=== PATIENT | male | born 1980 | race African-American/Black ===

== ENCOUNTER 2016-12-26 14:23 | Emergency (ER) | payer OTHER ==
--- NOTE | 2016-12-26 15:15 | UC ---
Abdominal Pain Male HPI - HPI Summary HPI Summary: PT MOVED HERE FROM [facility] 2 MONTHS AGO. IN THE PAST SEVERAL WEEKS HAS NOTICED AN INCREASE IN FLATULENCE. DENIES ANY FEVER, WEIGHT LOSS, BLOOD IN STOOL, ABDOMINAL PAIN, N/V OR CHANGE IN BOWEL CONSISTENCY. - History of Current Complaint Chief Complaint: UCForeignBody Stated Complaint: FLATULENCE Time Seen by Provider: 12/26/16 14:45 Hx Obtained From: Patient Onset/Duration: Gradual Onset, Lasting Weeks, Still Present Severity Initially: Mild Severity Currently: Mild Pain Intensity: 0 Pain Scale Used: 0-10 Numeric Aggravating Factor(s): Nothing Alleviating Factor(s): Nothing Associated Signs And Symptoms: Positive: Negative - Allergies/Home Medications Allergies/Adverse Reactions: Allergies Allergy/AdvReac Type Severity Reaction Status Date / Time No Known Allergies Allergy Verified 12/26/16 14:32 PMH/Surg Hx/FS Hx/Imm Hx Previously Healthy: Yes - Surgical History Surgical History: None - Family History Known Family History: Positive: Hypertension - Social History Alcohol Use: Occasionally Substance Use Type: None Smoking Status (MU): Never Smoked Tobacco Review of Systems Constitutional: Negative Respiratory: Negative Cardiovascular: Negative Gastrointestinal: Other - INCREASED FLATULENCE Genitourinary: Negative All Other Systems Reviewed And Are Negative: Yes Physical Exam Triage Information Reviewed: Yes Appearance: Well-Appearing, No Pain Distress, Well-Nourished Vital Signs: Initial Vital Signs Temp 97.6 F 12/26/16 14:29 Pulse 66 12/26/16 14:29 Resp 18 12/26/16 14:29 BP 120/76 12/26/16 14:29 Pulse Ox 99 12/26/16 14:29 Vital Signs Reviewed: Yes Eyes: Positive: Conjunctiva Clear ENT: Positive: Hearing grossly normal, Pharynx normal, Other: - RIGHT TM NORMAL. LEFT EAC OBSTRUCTED BY CERUMEN Neck: Positive: Supple, Nontender, No Lymphadenopathy Respiratory Exam: Normal Cardiovascular Exam: Normal Abdomen Description: Positive: Soft Bowel Sounds: Positive: Present - NORMAL SOUNDING Musculoskeletal: Positive: No Edema Neurological: Positive: Alert Psychological: Positive: Age Appropriate Behavior Skin: Negative: rashes Abd Pain Male Course/Dx - Course Course Of Treatment: CERUMEN SUCCESSFULLY IRRIGATED BY RN - Differential Dx/Clinical Impression Provider Diagnoses: 1. FLATULENCE. 2. CERUMEN IMPACTION LEFT EAR Discharge - Discharge Plan Condition: Stable Disposition: HOME Prescriptions: Simethicone [Eql Gas Relief Extra Stre] 125 mg PO QID PRN #30 cap PRN Reason: Pain Patient Education Materials: Cerumen Impaction (ED), Gas and Bloating (ED) Additional Instructions: CALL THE NUMBER BELOW FOR ASSISTANCE IN ESTABLISHING WITH A PCP An additional resource available to assist in finding the appropriate physician for your health care needs is the [facility] ([facility]). You may contact them by calling [phone]. TRY ELIMINATING CERTAIN FOODS FROM YOUR DIET TO SEE IF IT HELPS WITH YOUR SYMPTOMS. THE FOLLOWING TYPES OF FOODS ARE OFTEN ASSOCIATED WITH GAS PRODUCTION. - lactose, fructose, sorbitol, undigestible starches in fruits, vegetables, and legumes; and carbonated beverages. Products such as pork may release trace concentrations of malodorous gases upon digestion.
== END 2016-12-26 15:45 | disposition home or self-care (01) ==
LOC: UCEAST 14:23
DX: H61.22 Impacted cerumen, left ear (principal); R14.3 Flatulence
CPT/HCPCS: 99203; G0463

== ENCOUNTER 2017-02-02 09:50 | Emergency (ER) | payer OTHER ==
--- NOTE | 2017-02-02 12:49 | UC ---
Throat Pain/Nasal Julio HPI - HPI Summary HPI Summary: Pleasant 36 yo gentleman c/o progressively worse sore throat x approx 2 days. ? fever. No chills. No cough. No rash. No abd discomfort. Unk sick contact , works at [employer]. No recent travel. - History of Current Complaint Chief Complaint: UCGeneralIllness Stated Complaint: SORE THROAT Time Seen by Provider: 02/02/17 12:30 Hx Obtained From: Patient - Allergies/Home Medications Allergies/Adverse Reactions: Allergies Allergy/AdvReac Type Severity Reaction Status Date / Time No Known Allergies Allergy Verified 02/02/17 10:55 Home Medications: Home Medications Ibuprofen TAB* [Advil TAB*] 400 mg PO Q8HR PRN 02/02/17 [History Confirmed 02/02] PMH/Surg Hx/FS Hx/Imm Hx Previously Healthy: Yes - Surgical History Surgical History: None - Family History Known Family History: Positive: Hypertension - Social History Alcohol Use: Occasionally Substance Use Type: None Smoking Status (MU): Never Smoked Tobacco Review of Systems Constitutional: Fatigue Skin: Negative Eyes: Negative ENT: Sore Throat Respiratory: Negative Cardiovascular: Negative Gastrointestinal: Negative Genitourinary: Negative Motor: Negative Neurovascular: Negative Musculoskeletal: Negative Neurological: Negative Psychological: Negative Is Patient Immunocompromised?: No All Other Systems Reviewed And Are Negative: Yes Physical Exam Triage Information Reviewed: Yes Appearance: Well-Nourished Vital Signs: Initial Vital Signs Temp 97.7 F 02/02/17 10:49 Pulse 73 02/02/17 10:49 Resp 16 02/02/17 10:49 BP 127/82 02/02/17 10:49 Pulse Ox 98 02/02/17 10:49 Vital Signs Reviewed: Yes Eye Exam: Normal - grossly normal ENT: Positive: Pharyngeal erythema - airway patent. no sores. + redness. uvula midline., TM dull - au dull, Other - + stained teeth (chronic nut?) Neck exam: Normal Neck: Positive: Supple, Nontender, No Lymphadenopathy - none noted Respiratory Exam: Normal Respiratory: Positive: Chest non-tender, Lungs clear, Normal breath sounds, No respiratory distress Cardiovascular Exam: Normal Cardiovascular: Positive: RRR, Pulses Normal, Brisk Capillary Refill Abdominal Exam: Normal Abdomen Description: Positive: Nontender Musculoskeletal Exam: Normal Musculoskeletal: Positive: Strength Intact Neurological Exam: Normal - nonfocal Psychological Exam: Normal - conversing easily and appropriately Skin Exam: Normal - no visible or appreciated rash Throat Pain/Nasal Course/Dx - Course Course Of Treatment: 12:46 RST neg. Reviewed with pt. Consider mononucleosis ( unk hx), less likely - but will check. F/u PCP per routine. - Differential Dx/Diagnosis Provider Diagnoses: acute pharyngitis. Discharge - Discharge Plan Condition: Stable Disposition: HOME Prescriptions: Cefuroxime Axetil [Ceftin 500 MG TAB] 500 mg PO BID #20 tab Patient Education Materials: Pharyngitis (ED) Forms: *Work Release Referrals: [facility] [place] [facility] [Outside] No Primary Care Phys,NOPCP [Primary Care Provider] - Additional Instructions: Follow up with primary care physician as soon as you are able. Seek medical attention for worse or new problems in the meantime. Mononucleosis tests ordered today.
[2017-02-02 13:14] LABS: EBV Response YES
[2017-02-02 16:37] LABS: Mono Internal Control QC Line Present
[2017-02-03 15:22] LABS: EBV Capsid Ag IgG Ab Positive (Negative); EBV Capsid Ag IgM Ab Negative (Negative)
--- NOTE | 2017-02-03 19:07 | UC ---
Progress - Progress Note Progress Note: Evans negative for acute infection. Was placed on antibiotic for pharyngitis. No change - Results/Orders Results/Orders: Evans is negative for acute infection. Appears he was exposed to mono in the past.
== END 2017-02-02 13:10 | disposition home or self-care (01) ==
LOC: UCEAST 09:50
DX: J02.9 Acute pharyngitis, unspecified (principal)
CPT/HCPCS: 36415; 86308; 86664; 86665; 87651; 99212; G0463

== ENCOUNTER 2018-04-10 16:37 | Emergency (ER) | payer OTHER ==
[2018-04-10 16:49] VITALS: BP 122/87
--- NOTE | 2018-04-10 17:08 | UC ---
Respiratory Complaint HPI - HPI Summary HPI Summary: Patient is a 37 year old gentleman, who present today to the urgent care with sore throat for past 1 week. He reports that the tonsils are painful especially in morning and evening Denies any fevers or chills. He might have come in contact with someone sick No skin rash. Denies any cough, chest pain or shortness of breath . Denies any abdominal pain , nausea or vomiting , diarrhea or constipation. Did not take any medication so far - History of Current Complaint Chief Complaint: UCGeneralIllness Stated Complaint: SORE THROAT Time Seen by Provider: 04/10/18 16:59 Hx Obtained From: Patient Pain Intensity: 3 - Allergies/Home Medications Allergies/Adverse Reactions: Allergies Allergy/AdvReac Type Severity Reaction Status Date / Time No Known Allergies Allergy Verified 04/10/18 16:49 PMH/Surg Hx/FS Hx/Imm Hx - Additional Past Medical History Additional PMH: No significant past medical history Not taking any home medications Previously Healthy: Yes - Surgical History Surgical History: None - Family History Known Family History: Positive: Hypertension - Social History Alcohol Use: Weekly Substance Use Type: None Smoking Status (MU): Never Smoked Tobacco Review of Systems All Other Systems Reviewed And Are Negative: Yes Constitutional: Positive: Negative Skin: Positive: Negative Eyes: Positive: Negative ENT: Positive: Sore Throat, Other - Pain in his tonsils Respiratory: Positive: Negative Cardiovascular: Positive: Negative Gastrointestinal: Positive: Negative Genitourinary: Positive: Negative Motor: Positive: Negative Neurovascular: Positive: Negative Musculoskeletal: Positive: Negative Psychological: Positive: Negative Is Patient Immunocompromised?: No Physical Exam - Summary Physical Exam Summary: Physical Exam: Const: Appears well. No signs of apparent distress present. Alert and oriented x 3. Musculo: Walks with a normal gait. Head/Face: Atraumatic, normocephalic on inspection. Eyes: EOMI and PERRLA in both eyes. Conjunctivae clear. No discharge noted ENT: Hearing normal, TM normal appearing bilaterally, non bulging , non erythematous . No tenderness on palpation / manipulation of Tragus. No mastoid tenderness. No tenderness to palpation on maxillary and frontal sinus. Mild pharyngeal erythema, no exudates . Uvula is midline. No cervical or submandibular lymphadenopathy noted. Respiratory: Respirations are unlabored. Lungs clear to auscultation bilaterally, no wheezing , rhonchi or rales noted . CVS: Regular rate and Rhythm, S1S2 normal , no murmurs identified. Extremities: Peripheral circulation is grossly normal. Pulses 2+ Abdomen : Soft non tender , nondistended , Bowel sounds present . No guarding , rebound tenderness or rigidity noted. Skin: No lesions or rash located on the upper extremities or on the lower extremities. Neuro: Cranial nerves II to XII intact, motor and sensory intact. DTR Intact bilaterally. Mood is normal. Affect is normal. Triage Information Reviewed: Yes Vital Signs: Initial Vital Signs Temp 98.6 F 04/10/18 16:44 Pulse 80 04/10/18 16:44 Resp 16 04/10/18 16:44 BP 122/87 04/10/18 16:44 Pulse Ox 100 04/10/18 16:44 Vital Signs Reviewed: Yes UC Diagnostic Evaluation - Laboratory O2 Sat by Pulse Oximetry: 100 Respiratory Course/Dx - Course Course Of Treatment: During the visit today, we obtained a rapid strep test which was negative . We discussed the findings which appeared to be secondary to a viral illness and further plan. We discussed that he does not need any antibiotic but I will prescribe the medication to the pharmacy and he will fill it if his symptoms do not improve over next 2-3 days. He will follow-up with his primary care doctor in 2-3 days. Patient expressed understanding . - Differential Dx/Diagnosis Provider Diagnosis: Viral syndrome Discharge - Sign-Out/Discharge Documenting (check all that apply): Patient Departure All imaging exams completed and their final reports reviewed: No Studies - Discharge Plan Condition: Stable Disposition: HOME Prescriptions: Azithromyxin ALVARADO (NF) [Z-Alvarado (Zithromax) 250 mg tabs #6] 2 tab PO .TODAY, THEN 1 DAILY 5 Days #6 tab Patient Education Materials: Viral Syndrome (ED) Referrals: Kendrick Ragsdale MD [Primary Care Provider] - 3 Days Additional Instructions: Antibiotic has been prescribed to the pharmacy please fill it only if there is no improvement over next 2-3 days . Salt water gargles will be helpful. Throat lozenges will be helpful as well Follow up with your primary care doctor in 2 - 3 days. Return to Urgent care / ER if symptoms get worse. - Billing Disposition and Condition Condition: STABLE Disposition: Home
== END 2018-04-10 17:25 | disposition home or self-care (01) ==
LOC: UCEAST 16:37
DX: B34.9 Viral infection, unspecified (principal)
CPT/HCPCS: 87651; 99212; G0463